=== PATIENT | female | born 1995 | race Caucasian/White ===

== ENCOUNTER → 2019-04-11 | Outpatient (CLI) | payer OTHER ==
[2019-04-12 07:13] LABS: HEPATITIS B SURFACE AB QUAL Non Reactive (.); HEPATITS B SURFACE ANTIGEN Negative (Negative)
[2019-04-12 13:06] LABS: VARICELLA ZOSTER IGG AB <135 index (Immune >16)
[2019-04-14 15:54] LABS: MUMPS IGG AB 30.2 AU/mL (Immune >10); RUBEOLA IGG AB <13.5 AU/mL (Immune >16)
== END ==
LOC: OD 07:07
PROVIDERS: ATTEND Family Medicine
DX: Z01.84 Encounter for antibody response examination (principal); Z11.1 Encounter for screening for respiratory tuberculosis
CPT/HCPCS: 36415; 86480; 86706; 86735; 86762; 86765; 86787; 87340